=== PATIENT | male | born 1945 | race Caucasian/White ===

== ENCOUNTER 2023-06-27 09:31 | Outpatient (CLI) | payer BC | END 2023-06-27 09:32 | disposition home or self-care (01) | LOC: SCSMRI 09:31 | PROVIDERS: ATTEND Urology | DX: M51.16 Intervertebral disc disorders with radiculopathy, lumbar region (principal); R39.12 Poor urinary stream; M51.37 Other intervertebral disc degeneration, lumbosacral region; M48.061 Spinal stenosis, lumbar region without neurogenic claudication; M48.07 Spinal stenosis, lumbosacral region | CPT/HCPCS: 72158 ==

== ENCOUNTER 2024-02-27 09:55 | Outpatient (CLI) | payer BC ==
[2024-02-27 12:13] LABS: Hemoglobin 14.5 g/dL (13.5-17.5); Mean Corpuscular HGB CONC 34.5 g/dL (32.0-36.0); Mean Corpuscular Hemoglobin 28.3 pg (27.0-33.0); Mean Platelet Volume 9.6 fL (7.4-10.4); Platelet Count 187 10x3/uL (150-450); RBC Distribution Width 13.4 % (11.5-14.5); Red Blood Cell (RBC) Count 5.12 10x6/uL (4.32-5.72); White Blood Cell (WBC) Count 6.3 10x3/uL (3.5-10.5)
[2024-02-27 12:21] LABS: PTT 27.1 sec (22.0-33.0); Prothrombin Time 11.1 sec (9.5-12.1)
[2024-02-27 12:32] LABS: Anion Gap 11 mmol/L (10-20); BUN (Urea Nitrogen) 15 mg/dL (8.4-25.7); Calc. Creatinine Clearance 0 mL/min (70-130); Calcium 9.6 mg/dL (7.8-10.44); Carbon Dioxide 27 mmol/L (23-31); Chloride 107 mmol/L (98-107); Estimated GFR 90; Glucose 96 mg/dL (83-110); Potassium 4.6 mmol/L (3.5-5.1); Sodium 140 mmol/L (136-145)
== END 2024-02-27 09:56 | disposition home or self-care (01) ==
LOC: LABBT 09:55
PROVIDERS: ATTEND Urology
DX: Z01.812 Encounter for preprocedural laboratory examination (principal); Z12.5 Encounter for screening for malignant neoplasm of prostate; N40.1 Benign prostatic hyperplasia with lower urinary tract symptoms; M54.16 Radiculopathy, lumbar region; R39.12 Poor urinary stream; Z87.891 Personal history of nicotine dependence
CPT/HCPCS: 80048; 85027; 85610; 85730

== ENCOUNTER 2024-03-10 08:13 | Observation (INO) | payer BC ==
[2024-03-10] MEDS ORDERED: cefTRIAXone (ROCEPHIN) 2 GM VIAL ONE (09:55)
[2024-03-10] MEDS ORDERED: Sodium Chloride 0.9% 100 ML ONE (09:55)
[2024-03-10] MEDS ORDERED: Lidocaine 2% PF 5 ML VIAL ONE (11:19)
[2024-03-10] MEDS ORDERED: PROPOFOL 20 ML ONE (11:19)
[2024-03-10] MEDS ORDERED: fentaNYL PF 100 MCG/2 ML SYRINGE ONE ×2 (11:19→15:04)
[2024-03-10] MEDS ORDERED: ePHEDrine Sulfate 50 MG/10 ML VIAL ONE (12:42)
[2024-03-10] MEDS ORDERED: Ondansetron PF 4 MG/2 ML Vial ONE (12:47)
[2024-03-10] MEDS ORDERED: fentaNYL 50 mcg/mL 1 mL Vial ONE ×2 (13:16→13:53)
[2024-03-10] MEDS ORDERED: Bisacodyl 10 MG SUPP PR PRN (14:34)
[2024-03-10] MEDS ORDERED: Acetaminophen 500 MG TAB PO PRN (14:34)
[2024-03-10] MEDS ORDERED: Zolpidem Tartrate 5 MG TAB PO PRN (14:34)
[2024-03-10] MEDS ORDERED: hydrALAZINE 20 MG/ML VIAL SLOW IVP PRN (14:34)
[2024-03-10] MEDS ORDERED: diphenhydrAMINE 50 MG/ML VIAL IVP PRN (14:34)
[2024-03-10] MEDS ORDERED: Ondansetron PF 4 MG/2 ML Vial IVP PRN (14:34)
[2024-03-10] MEDS ORDERED: Mag-Al 1200 mg/1200 mg/30 ML UDCUP PO PRN (14:34)
[2024-03-10] MEDS ORDERED: HYDROcodone/Acetaminophen 5/325 mg Tablet PO PRN ×2 (14:34)
[2024-03-10] MEDS ORDERED: Morphine 4 MG/ML VIAL SLOW IVP PRN (14:46)
[2024-03-10 15:50] LABS: #Basophils Less than 0.03 10x3/uL (0.0-0.2); %Basophils 0.2 % (0.0-1.0); %Eosinophils 0.6 % (0.0-10.0); %Lymphocytes 12.3 % (21.0-51.0); %Monocytes 4.9 % (0.0-10.0); %Neutrophils 81.5 % (42.0-75.0); Hematocrit 37.5 % (42.0-52.0); Hemoglobin 12.8 g/dL (14.0-18.0); Mean Corpuscular HGB CONC 34.1 g/dL (32.0-36.0); Mean Corpuscular Hemoglobin 28.8 pg (27.0-31.0); Mean Corpuscular Volume 84.3 fL (78.0-98.0); Mean Platelet Volume 9.4 fL (7.4-10.4); Platelet Count 147 10x3/uL (130-400); RBC Distribution Width 13.7 % (11.5-14.5); Red Blood Cell (RBC) Count 4.45 mill/uL (4.70-6.10)
[2024-03-10 16:07] LABS: Anion Gap 12 mmol/L (10-20); BUN (Urea Nitrogen) 17 mg/dL (8.4-25.7); Calc. Creatinine Clearance 102 mL/min (70-130); Calcium 8.5 mg/dL (7.8-10.44); Carbon Dioxide 21 mmol/L (23-31); Chloride 111 mmol/L (98-107); Estimated GFR 90; Glucose 105 mg/dL (83-110); Potassium 4.2 mmol/L (3.5-5.1); Sodium 140 mmol/L (136-145)
[2024-03-10 17:35] VITALS: BMI 30.7
[2024-03-10] MEDS: Tamsulosin HCl 0.4 MG CAP PO SCH (21:24)
[2024-03-10] MEDS: Lisinopril 5 MG TAB PO SCH (21:24)
[2024-03-10] MEDS: Docusate 100 MG CAP PO SCH (21:24)
[2024-03-10] MEDS: Sodium Chloride 0.9% 1,000 ML IV SCH (21:25)
[2024-03-10] MEDS: Dutasteride 0.5 MG CAP PO SCH (21:25)
[2024-03-10] MEDS: Trospium 20 MG TAB PO SCH (21:25)
[2024-03-10] MEDS: Rosuvastatin 20 MG TAB PO SCH (21:25)
[2024-03-10] MEDS: Famotidine/PF 20 mg/2ml Vial SLOW IVP SCH (21:25)
[2024-03-11] MEDS: cefTRIAXone\\ROCEPHIN 1 GM in Sodium Chloride 0.9% 100 ML IVPB SCH (05:08)
[2024-03-11 06:00] LABS: #Basophils Less than 0.03 10x3/uL (0.0-0.2); %Basophils 0.2 % (0.0-1.0); %Eosinophils 0.9 % (0.0-10.0); %Lymphocytes 14.1 % (21.0-51.0); %Monocytes 7.1 % (0.0-10.0); %Neutrophils 77.5 % (42.0-75.0); Hematocrit 38.4 % (42.0-52.0); Hemoglobin 12.9 g/dL (14.0-18.0); Mean Corpuscular HGB CONC 33.6 g/dL (32.0-36.0); Mean Corpuscular Hemoglobin 27.6 pg (27.0-31.0); Mean Corpuscular Volume 82.1 fL (78.0-98.0); Mean Platelet Volume 9.7 fL (7.4-10.4); Platelet Count 152 10x3/uL (130-400); Red Blood Cell (RBC) Count 4.68 mill/uL (4.70-6.10)
[2024-03-11 07:06] LABS: Anion Gap 10 mmol/L (10-20); BUN (Urea Nitrogen) 16 mg/dL (8.4-25.7); Calc. Creatinine Clearance 108 mL/min (70-130); Calcium 8.7 mg/dL (7.8-10.44); Carbon Dioxide 25 mmol/L (23-31); Chloride 107 mmol/L (98-107); Estimated GFR 92; Glucose 91 mg/dL (83-110); Potassium 4.3 mmol/L (3.5-5.1); Sodium 138 mmol/L (136-145)
[2024-03-11 11:25] VITALS: BP 148/64; TEMP 97.9
== END 2024-03-11 14:15 | disposition home or self-care (01) ==
LOC: SDC 08:13 → SURG B 14:34
PROVIDERS: ADMIT Urology; ATTEND Urology
PROC: 0VT08ZZ Resection of Prostate, Via Natural or Artificial Opening Endoscopic (ICD-10-PCS; principal; 2024-03-11)
DX: N40.1 Benign prostatic hyperplasia with lower urinary tract symptoms (principal); R39.12 Poor urinary stream; I10 Essential (primary) hypertension; E66.9 Obesity, unspecified; I25.10 Atherosclerotic heart disease of native coronary artery without angina pectoris; I21.4 Non-ST elevation (NSTEMI) myocardial infarction; M54.16 Radiculopathy, lumbar region; Z90.49 Acquired absence of other specified parts of digestive tract; Z98.890 Other specified postprocedural states; Z79.899 Other long term (current) drug therapy; Z79.82 Long term (current) use of aspirin; Z95.1 Presence of aortocoronary bypass graft; Z87.891 Personal history of nicotine dependence; Z68.32 Body mass index [BMI] 32.0-32.9, adult
CPT/HCPCS: 36415; 80048; 85025; 86850; 86900; 86901; 88305; A4333; J0696; J2001; J2405; J2704; J3010; J3490; J7050; S0028

== ENCOUNTER 2024-04-08 08:50 | Emergency (ER) | payer BC ==
[2024-04-08 09:21] LABS: Bacteria/HPF 1+ HPF (None Seen); Bilirubin Negative (Negative); Blood, Urine 2+ (Negative); CAUTI Indications for Culture Acute Hematuria; Clarity Clear (Clear); Glucose, Urine (Dipstick) Normal (Negative); Ketone, Urine Negative (Negative); Leukocyte 500 Leu/uL (Negative); Nitrite Negative (Negative); Protein, Urine (Dipstick) 10 mg/dL (Neg-Trace); RBC/HPF 21-50 HPF (0-3); Specific Gravity, Urine 1.007 (1.002-1.036); Squamous Epithelial None Seen HPF (0-3); Urobilinogen Normal mg/dL (Less than 2); WBC/HPF 21-50 HPF (0-3); pH, Urine 7.5 (5.0-9.0)
[2024-04-08 09:23] LABS: Urine Culture Reflex Yes Yes
== END 2024-04-08 09:45 | disposition home or self-care (01) ==
LOC: ERS 08:50
DX: N39.0 Urinary tract infection, site not specified (principal); E78.5 Hyperlipidemia, unspecified; I10 Essential (primary) hypertension; Z79.899 Other long term (current) drug therapy
CPT/HCPCS: 81001; 87086; 99283